=== PATIENT | female | born 1945 | race Caucasian/White ===

== ENCOUNTER 2022-02-24 05:31 | Inpatient (IN) | payer MEDICARE, BC ==
[2022-02-24] VITALS (9 sets, daily range): BP systolic 109–140; BP diastolic 43–62
[~2022-02-24] VITALS: Ht 154.9 cm; Wt 93.2 kg
[~2022-02-24 05:31] MED LIST: CALC600T21 PO; CHOL2000 PO; CITA20TA2 PO; GABA-530 PO; HYDR-4353 PO; LEVO88TA39 PO; METF-436 PO; MULT-1166 PO; OCUVITE PO; PIOG30TA10 PO; QUIN10TA35 PO; SIMV10TA98 PO
[2022-02-24 06:11] LABS: BASOPHILS # (AUTO) 0.1 X10'3 (0-0.2); BASOPHILS % (AUTO) 0.7 % (0-1); EOSINOPHILS # (AUTO) 0.4 X10'3 (0-0.9); EOSINOPHILS % (AUTO) 4.4 % (0-6); HEMATOCRIT 37.7 % (35.0-45.0); HEMOGLOBIN 12.8 g/dl (12.0-16.0); LYMPHOCYTES # (AUTO) 3.4 X10'3 (1.1-4.8); LYMPHOCYTES % (AUTO) 38.1 % (21-51); MEAN CORPUSCULAR HGB CONC 33.9 g/dL (33.0-36.5); MEAN CORPUSCULAR VOLUME 88.4 FL (78-98); MEAN PLATELET VOLUME 8.1 FL (7.4-10.4); MONOCYTES # (AUTO) 0.9 X10'3 (0-0.9); MONOCYTES % (AUTO) 10.1 % (2-12); NEUTROPHILS # (AUTO) 4.2 X10'3 (1.8-7.7); NEUTROPHILS % (AUTO) 46.7 % (42-75); PLATELET COUNT 227 X10'3 (140-440); RED BLOOD COUNT 4.26 X10'6 (4.20-5.60)
[2022-02-24 06:26] LABS: ALANINE AMINOTRANSFERASE 24 U/L (12-78); ALBUMIN 3.6 G/DL (3.4-5.0); ALBUMIN/GLOBULIN RATIO 0.9 (1.1-1.5); ALKALINE PHOSPHATASE 59 IU/L (46-116); ANION GAP 6 (8-16); ASPARTATE AMINO TRANSFERASE 24 U/L (10-37); BILIRUBIN,TOTAL 0.7 MG/DL (0.1-1.0); BLOOD UREA NITROGEN 21 MG/DL (7-18); BUN/CREATININE RATIO 15.8 (6.6-38.0); CALCIUM 9.5 MG/DL (8.5-10.1); CHLORIDE 102 MMOL/L (99-107); CREATININE 1.33 MG/DL (0.40-0.90); GLUCOSE 110 MG/DL (70-104); POTASSIUM 4.7 MMOL/L (3.5-5.1); SODIUM 140 MMOL/L (135-145); TOTAL CARBON DIOXIDE 31.6 MMOL/L (24-32); TOTAL PROTEIN 7.5 G/DL (6.4-8.2); eGFR 39 ML/MIN
[2022-02-24] MEDS ORDERED: aspirin 325mg tablet PO ONE (09:01)
[2022-02-24] MEDS ORDERED: regadenoson 0.4mg/5ml syringe IV PRN (13:35)
[2022-02-24] MEDS ORDERED: aminophylline 500mg/20ml vial IV PRN (13:35)
[2022-02-24] MEDS ORDERED: acetaminophen 325mg tablet PO PRN ×2 (13:35)
[2022-02-24] MEDS ORDERED: magnesium hydroxide 30ml (MOM) UD suspension PO PRN (13:35)
[2022-02-24] MEDS ORDERED: PERFLUTREN PROTEIN-A MICROSPHR (Optison) 0.22 MG/ML 3ML VIAL IV ONE (13:35)
[2022-02-24] MEDS ORDERED: potassium Cl 40MEQ/1/2NS 520ml 520 ML IV PRN (13:35)
[2022-02-24] MEDS ORDERED: HYDROcodone/acetaminophen 10/325mg tab PO PRN (13:35)
[2022-02-24] MEDS ORDERED: MESSAGE TO PHARMACY PO ONE (13:35)
[2022-02-24] MEDS ORDERED: insulin Lispro (HumaLOG) vial - multi-dose SQ SCH (13:35)
[2022-02-24] MEDS ORDERED: mag hydrox/Alum hydrox/simeth 30ml oral suspension PO PRN (13:35)
[2022-02-24] MEDS ORDERED: nitroGLYCERIN 0.4mg SUBLingual tab SL PRN (13:35)
[2022-02-24] MEDS ORDERED: metoprolol tartrate 1mg/ml inj IV PRN (13:35)
[2022-02-24] MEDS ORDERED: magnesium 4gm in 100ml NS 100 ML IV PRN (13:35)
[2022-02-24] MEDS ORDERED: dextrose 50%-water 50ml dispensing syringe IV PRN ×2 (13:35)
[2022-02-24] MEDS ORDERED: HYDROcodone/acetaminophen 5mg/325mg tablet PO PRN (13:35)
[2022-02-24] MEDS ORDERED: ondansetron/PF 4mg/2ml inj IV PRN (13:35)
[2022-02-24] MEDS ORDERED: diphenhydrAMINE 25mg capsule PO PRN (13:35)
[2022-02-24] MEDS ORDERED: potassium Cl 20 mEq SR tablet PO PRN ×2 (13:35)
[2022-02-24] MEDS ORDERED: DEXTROSE 15 GM of carb/4 tabs (each vial/BOTTLE has 4 tablets) PO PRN ×2 (13:35)
[2022-02-24] MEDS ORDERED: glucagon, human recombinant 1mg kit SUBCUT PRN (13:35)
[2022-02-24] MEDS ORDERED: magnesium Cl slow-release 64mg tablet PO PRN (13:35)
[2022-02-24] MEDS ORDERED: bisacodyl 10mg suppository rectal RC PRN (13:35)
[2022-02-24] MEDS ORDERED: normal saline 1000ml 1,000 ML IV SCH (13:35)
[2022-02-24] MEDS ORDERED: FLUT15.87 NAS (15:41)
[2022-02-24] MEDS ORDERED: LEVO50TA8 PO (15:42)
[2022-02-24] MEDS ORDERED: GABA300C PO (15:43)
[2022-02-24] MEDS ORDERED: METO-395 PO (15:43)
[2022-02-24] MEDS ORDERED: ASPI-1071 PO (15:44)
[2022-02-24] MEDS ORDERED: QUIN20TA39 PO (15:44)
--- NOTE | 2022-02-24 18:40 | NUR ---
Pt here for c/o CP radiating to mid back & SOB that awoke pt this am around 5am. Pt reports CP lasted for 5hr continously that has since resolved during stay
[2022-02-24] MEDS ORDERED: PANT-47 PO (18:50)
[2022-02-24] MEDS ORDERED: LEVO-65 PO (18:52)
[2022-02-24] MEDS ORDERED: LACT1CAP26 PO (18:52)
[2022-02-24] MEDS ORDERED: ALBU8.5H17 INH (18:52)
[2022-02-24] MEDS ORDERED: levoFLOXACIN 250mg tablet PO ONE (18:55)
--- NOTE | 2022-02-24 19:31 | NUR ---
REVIEWED IS INSTRUCTIONS AND USE. PT RETRUNED DEMONSTARTION OF UNDERSTANDING. PT AGREED TO USE IS 10X/HR WITH GOAL OF [id number].
[2022-02-24] MEDS ORDERED: K and/or MAG REPLACEMENT MC SCH (20:00)
[2022-02-24] MEDS ORDERED: heparin, porcine 5000 units/ml vial SQ SCH (20:00)
[2022-02-24] MEDS ORDERED: docusate sod 100mg capsule PO SCH (20:00)
[2022-02-24] MEDS ORDERED: insulin glargine (Lantus) pen - multi-dose SQ SCH (21:00)
--- NOTE | 2022-03-02 13:49 | NUR ---
Case Management DC follow up: Spoke with Patient's via telephone. S/P: Patient Reports:, Denies: Acute/continuous CP, emergent SOB, resp distress, orthopnea, dyspnea, N/V, hematemesis, weakness,vertigo, syncope episodes, orthostatic hypotension, FINK, blurry vision, s/s of stroke/BE-FAST, dysuria, hematuria,retention, abdominal pain/distention, hematochezia, melena, unexplained bruising, bleeding, fever, chills. Verbalizes understanding of new Rx: , why prescribed; continues/resumes current Rx as ordered.Verbalizes using Incentive Spirometer; however, not as often as ordered.Verbalizes understanding of s/s that warrant a 9-/ER visit for further evaluation.Verbalizes she has follow up appointment with 03/07/22, and Dr. Pablo 03/08/22.Verbalizes the nursing care was great. Needs met, questions/concerns addressed at DC; No further questions/concerns regarding recent hospital stay and /or DC status at this time.
== END 2022-02-24 19:45 | disposition home or self-care (01) | DRG 391 ==
LOC: ER 05:31 → ED HOLD 13:40
PROVIDERS: ADMIT Family Medicine; ATTEND Family Medicine
PROC: 4A02XM4 Measurement of Cardiac Total Activity, External Approach (ICD-10-PCS; principal; 2022-02-24)
PROC: 3E033HZ Introduction of Radioactive Substance into Peripheral Vein, Percutaneous Approach (ICD-10-PCS; 2022-02-24)
DX: K21.9 Gastro-esophageal reflux disease without esophagitis (principal); J18.9 Pneumonia, unspecified organism; J98.11 Atelectasis; R09.1 Pleurisy; E03.9 Hypothyroidism, unspecified; E11.40 Type 2 diabetes mellitus with diabetic neuropathy, unspecified; E78.00 Pure hypercholesterolemia, unspecified; Z96.653 Presence of artificial knee joint, bilateral; M54.9 Dorsalgia, unspecified; F32.A Depression, unspecified; F41.9 Anxiety disorder, unspecified; I10 Essential (primary) hypertension; Z79.890 Hormone replacement therapy; Z79.899 Other long term (current) drug therapy; Z90.710 Acquired absence of both cervix and uterus; Z79.82 Long term (current) use of aspirin; Z91.013 Allergy to seafood; Z90.49 Acquired absence of other specified parts of digestive tract
CPT/HCPCS: 36415; 71045; 78452; 80053; 83036; 83880; 84484; 85025; 87081; 93005; 93017; 93306; 96360; 99285; A9500; G0378; J1815; J2785; J7030